=== PATIENT | female | born 1970 ===

== ENCOUNTER 2023-03-02 01:27 | Emergency (ER) | payer OTHER ==
[~2023-03-02] VITALS: Ht 162.6 cm; Wt 117.9 kg
[2023-03-02 03:13] LABS: Influenza A, PCR NEGATIVE (NEGATIVE); Influenza B, PCR NEGATIVE (NEGATIVE); Resp Syncytial Virus, PCR NEGATIVE (NEGATIVE); SARS-Cov-2 (COVID-19) PCR, MMC NEGATIVE (NEGATIVE)
[2023-03-02 03:45] VITALS: BP 127/74
== END 2023-03-02 03:51 | disposition home or self-care (01) ==
LOC: ER 01:27
PROVIDERS: Emergency Medicine
DX: J06.9 Acute upper respiratory infection, unspecified (principal); Z20.822 Contact with and (suspected) exposure to COVID-19; M79.10 Myalgia, unspecified site; R68.83 Chills (without fever); E11.9 Type 2 diabetes mellitus without complications; M19.90 Unspecified osteoarthritis, unspecified site; Z87.891 Personal history of nicotine dependence
CPT/HCPCS: 0241U; 96372; 99283-25; J1885